=== PATIENT | male | born 1935 | race Caucasian/White ===

== ENCOUNTER 2019-05-25 11:37 | Outpatient (CLI) | payer OTHER, SELFPAY ==
[2019-05-25 11:54] LABS: Hematocrit 36.1 % (42.0-52.0); Hemoglobin 12.3 g/dL (14.0-18.0); Mean Corpuscular HGB Conc 34.1 g/dl (32-36); Mean Corpuscular Hemoglobin 31.5 pg (26-34); Mean Corpuscular Volume 92.6 fl (80-100); Mean Platelet Volume 10.2 fl (7.4-10.4); Platelet Count Result 109 k/mm3 (150-375); Red Cell Distribution Width 13.2 % (11.5-14.5); White Blood Count 6.7 K/mm3 (4.5-10.0)
[2019-05-25 11:58] LABS: Hemoglobin A1C 6.5 % (<5.7)
[2019-05-25 12:02] LABS: Alanine Aminotransferase 35 U/L (4-50); Albumin Level 3.7 g/dL (3.5-5.1); Alkaline Phosphatase 70 U/L (38-126); Aspartate Amino Transferase 34 U/L (17-59); Bilirubin,Total 0.4 mg/dL (0.2-1.3); Blood Urea Nitrogen 18 mg/dL (9-20); Calcium 8.5 mg/dL (8.4-10.2); Carbon Dioxide 27 mmol/L (22-30); Chloride 105 mmol/L (98-107); Estimated Glomerular Filt Rate > 60; Glucose 88 mg/dL (75-110); Potassium 4.2 mmol/L (3.4-5.0); Sodium 142 mmol/L (137-145)
== END 2019-05-25 11:38 | disposition home or self-care (01) ==
PROVIDERS: PCP Internal Medicine; Visit Provider Internal Medicine
DX: E11.8 Type 2 diabetes mellitus with unspecified complications (principal); I10 Essential (primary) hypertension; E78.2 Mixed hyperlipidemia
CPT/HCPCS: 36415; 80053; 83036; 85027; 85055

== ENCOUNTER 2019-06-28 09:58 | Outpatient (CLI) | payer OTHER, SELFPAY ==
--- NOTE | ~2019-06-28 | CT_ITS ---
EXAMINATION: CT abdomen pelvis wo con EXAM DATE: 06/28/2019 10:17 INDICATION: Inguinal hernia. TECHNIQUE: Spiral CT of the abdomen and pelvis was performed without contrast. Axial, coronal and s agittal images were reviewed. The dose-length product (DLP) for this examination was 1052.11 mGy-cm. The exposure was tailored according to patient size (auto mA exposure control), and iterative recon struction (ASIR) was used as additional dose reduction technique. There is no prior study for compar jacqueline. FINDINGS: The liver, spleen, adrenal glands and pancreas are unremarkable. Gallbladder is unremarkab le. No biliary obstruction. There is no nephrolithiasis or hydronephrosis. Bilateral renal lesions which are homogeneous of varying densities, most likely cysts and hemorrhagic cysts. Possible TURP d efect. The bladder is unremarkable. There is no retroperitoneal or pelvic lymphadenopathy. Small left inguinal fat-containing hernia. Mild scattered aortic arterial sclerosis. The appendix is normal. The stomach and small bowel are unremarkable. There is mild scattered coloni c diverticulosis. There is no adjacent inflammatory change to suggest diverticulitis. No free intra peritoneal gas. The heart is normal in size. There are no pericardial or pleural effusions. There is a 4 mm left lower lobe nodule unchanged compared to 2013, a granuloma. There are no osteoblastic or osteolytic lesions identified. IMPRESSION: 1. Small left inguinal fat-containing hernia. Reviewed, dictated and finalized at location B.
== END 2019-06-28 09:59 | disposition home or self-care (01) ==
LOC: ANHIMG 10:00
PROVIDERS: PCP Internal Medicine; Visit Provider Internal Medicine
DX: K40.90 Unilateral inguinal hernia, without obstruction or gangrene, not specified as recurrent (principal)
CPT/HCPCS: 74176

== ENCOUNTER 2019-07-13 15:45 | Outpatient (CLI) | payer OTHER, SELFPAY ==
[2019-07-13 16:00] LABS: Basophils Percent Auto 0.4 % (0.2-1.2); Eosinophils Absolute Auto 0.2 K/mm3 (0-0.3); Eosinophils Percent Auto 3.5 % (0-4.4); Hematocrit 40.2 % (42.0-52.0); Hemoglobin 13.5 g/dL (14.0-18.0); Immature Granulocyte Absolute 0.07 K/mm3 (0.00-0.031); Lymphocytes Absolute Auto 2.47 K/mm3 (0.9-3.2); Lymphocytes Percent Auto 35.6 % (18.3-44.2); Mean Corpuscular HGB Conc 33.6 g/dl (32-36); Mean Corpuscular Hemoglobin 32.5 pg (26-34); Mean Corpuscular Volume 96.9 fl (80-100); Mean Platelet Volume 9.6 fl (7.4-10.4); Monocytes Absolute Auto 0.5 K/mm3 (0.1-0.6); Monocytes Percent Auto 7.6 % (2.6-8.5); Neutrophils Absolute Auto 3.6 K/mm3 (1.3-6.7); Neutrophils Percent Auto 51.9 % (45.5-73.1); Platelet Count Result 141 k/mm3 (150-375); Red Blood Count 4.15 M/mm3 (4.6-6.20); White Blood Count 6.9 K/mm3 (4.5-10.0)
[2019-07-13 16:48] LABS: Iron 116 ug/dL (49-181)
[2019-07-13 16:56] LABS: Alanine Aminotransferase 33 U/L (4-50); Albumin Level 4.3 g/dL (3.5-5.1); Alkaline Phosphatase 64 U/L (38-126); Aspartate Amino Transferase 31 U/L (17-59); Bilirubin,Total 0.3 mg/dL (0.2-1.3); Blood Urea Nitrogen 25 mg/dL (9-20); Calcium 8.8 mg/dL (8.4-10.2); Carbon Dioxide 26 mmol/L (22-30); Chloride 104 mmol/L (98-107); Estimated Glomerular Filt Rate > 60; Glucose 117 mg/dL (75-110); Potassium 4.4 mmol/L (3.4-5.0); Sodium 138 mmol/L (137-145)
[2019-07-13 16:59] LABS: Percent Iron Saturation 31 % (20-50)
[2019-07-13 17:59] LABS: Folic Acid > 20.0 ng/mL (2.76->20)
[2019-07-16 22:32] LABS: Platelet Antibody, Direct IgG NEGATIVE (NEGATIVE)
== END 2019-07-13 15:46 | disposition home or self-care (01) ==
LOC: ANHLAB 15:47
PROVIDERS: PCP Internal Medicine; Referring Provider Internal Medicine; Visit Provider Internal Medicine Hematology & Oncology
DX: D69.59 Other secondary thrombocytopenia (principal)
CPT/HCPCS: 36415; 80053; 82607; 82728; 82746; 83540; 83550; 85025; 86023

== ENCOUNTER 2019-07-20 08:42 | Outpatient (CLI) | payer OTHER, SELFPAY ==
--- NOTE | ~2019-07-20 | US_ITS ---
EXAMINATION: US abdomen complete DATE: 07/20/2019 09:31 INDICATION: Other secondary thrombocytopenia. TECHNIQUE: Multiple grayscale and Doppler ultrasound images of the abdomen were obtained. COMPARISON: CT abdomen and pelvis 06/28/2019 FINDINGS: The abdominal aorta is normal in caliber. The visualized portions of the head, body, and ta il of the pancreas are normal. The liver is normal without focal lesion. There is normal flow in main portal vein. The gallbladder is normal in size. No gallstones or gallbladder wall thickening. There was no sonographic Ballesteros sign. The common duct is normal and measures 3 mm. The inferior vena cava i s normal. The kidneys are normal in size. There are cysts in the kidneys measuring up to 4.5 cm on th e left. The spleen is normal in size. IMPRESSION: 1. No etiology for thrombocytopenia. Reviewed, dictated and finalized at location A.
== END 2019-07-20 08:43 | disposition home or self-care (01) ==
PROVIDERS: PCP Internal Medicine; Visit Provider Internal Medicine Hematology & Oncology
DX: D69.6 Thrombocytopenia, unspecified (principal)
CPT/HCPCS: 76700

== ENCOUNTER 2019-08-25 10:24 | Outpatient (CLI) | payer OTHER, SELFPAY ==
--- NOTE | ~2019-08-25 | XR_ITS ---
EXAMINATION: XR lumbar spine min 4V DATE: 08/25/2019 12:32 INDICATION: L4-L5 spondylolisthesis. TECHNIQUE: Anteroposterior and lateral in neutral, flexion and extension views of the lumbar spine, a nd cone-down lateral view of the lumbosacral junction were obtained. COMPARISON: Lumbar spine MR dated 04/18/2019 FINDINGS: 1-2 mm retrolisthesis L2 on L3 which is unchanged with flexion and increases to 3 mm with extension. 3 mm anterolisthesis L4 on L5 which is also unchanged with flexion and decreases to 2 mm with extensi on. Negligible vertebral body height loss at L3 result from superior endplate compression fracture be tter appreciated on prior MRI. Moderate disc height loss at L2-L3 and L3-L4 and mild disc height loss at L4-L5. Bilateral lower lumbar predominant severe facet osteoarthritis. Moderate bilateral sacroil iitis which could be either degenerative or inflammatory in etiology. IMPRESSION: 1. Severe lumbar spondylosis with negligible change with flexion and extension of grade 1 spondylolis thesis at L2-L3 and L4-L5. Reviewed, dictated and finalized at location A. IMPRESSION: 1. Severe lumbar spondylosis with negligible change with flexion and extension of grade 1 spondylolisthesis at L2-L3 and L4-L5.
[2019-08-25 11:24] LABS: Alanine Aminotransferase 34 U/L (4-50); Albumin Level 4.3 g/dL (3.5-5.1); Alkaline Phosphatase 72 U/L (38-126); Aspartate Amino Transferase 33 U/L (17-59); Bilirubin,Total 0.6 mg/dL (0.2-1.3); Blood Urea Nitrogen 24 mg/dL (9-20); Calcium 9.5 mg/dL (8.4-10.2); Carbon Dioxide 24 mmol/L (22-30); Chloride 107 mmol/L (98-107); Estimated Glomerular Filt Rate > 60; Glucose 151 mg/dL (75-110); Potassium 4.6 mmol/L (3.4-5.0); Sodium 139 mmol/L (137-145); Total Protein 7.2 g/dL (6.3-8.2)
[2019-08-25 13:18] LABS: Microalbumin Urine Random 9.8 mg/L (0-16.7)
[2019-08-25 13:20] LABS: Creatinine Urine 26.3 mg/dL; MALB Creatinine Ratio 37.3 mg/g (0-30)
[2019-08-25 13:27] LABS: Hemoglobin A1C 6.8 % (<5.7)
== END 2019-08-25 10:25 | disposition home or self-care (01) ==
PROVIDERS: PCP Internal Medicine; Referring Provider Neurological Surgery; Visit Provider Internal Medicine
DX: E11.8 Type 2 diabetes mellitus with unspecified complications (principal); M43.16 Spondylolisthesis, lumbar region; M48.062 Spinal stenosis, lumbar region with neurogenic claudication; M21.371 Foot drop, right foot; M47.816 Spondylosis without myelopathy or radiculopathy, lumbar region
CPT/HCPCS: 36415; 72110; 80053; 82043; 83036

== ENCOUNTER 2019-08-30 13:48 | Outpatient (CLI) | payer OTHER, SELFPAY ==
--- NOTE | ~2019-08-30 | XR_ITS ---
EXAMINATION: XR shoulder LT min 2V DATE: 08/30/2019 14:15 INDICATION: Left shoulder pain. Fall. TECHNIQUE: 4 views of left shoulder were obtained. COMPARISON: Left shoulder radiographs 04/04/2019 FINDINGS: Bone alignment is normal. No fracture. There is moderate osteoarthritis of glenohumeral eileen nt and acromioclavicular joint. IMPRESSION: 1. Moderate polyarticular osteoarthritis. Reviewed, dictated and finalized at location E.
== END 2019-08-30 13:49 | disposition home or self-care (01) ==
PROVIDERS: PCP Internal Medicine; Visit Provider Internal Medicine
DX: M19.012 Primary osteoarthritis, left shoulder (principal)
CPT/HCPCS: 73030

== ENCOUNTER 2019-09-05 13:38 | Outpatient (CLI) | payer OTHER, SELFPAY ==
[2019-09-05 14:02] LABS: Basophils Percent Auto 0.6 % (0.2-1.2); Eosinophils Absolute Auto 0.3 K/mm3 (0-0.3); Eosinophils Percent Auto 3.9 % (0-4.4); Hematocrit 41.8 % (42.0-52.0); Hemoglobin 14.1 g/dL (14.0-18.0); Immature Granulocyte Absolute 0.08 K/mm3 (0.00-0.031); Immature Granulocyte Percent A 1.2 % (0-0.5); Immature Platelet Fraction Pct 2.3 % (0.9-11.2); Lymphocytes Absolute Auto 2.12 K/mm3 (0.9-3.2); Lymphocytes Percent Auto 30.7 % (18.3-44.2); Mean Corpuscular HGB Conc 33.7 g/dl (32-36); Mean Corpuscular Hemoglobin 31.8 pg (26-34); Mean Corpuscular Volume 94.1 fl (80-100); Mean Platelet Volume 9.7 fl (7.4-10.4); Monocytes Absolute Auto 0.6 K/mm3 (0.1-0.6); Monocytes Percent Auto 8.1 % (2.6-8.5); Neutrophils Absolute Auto 3.8 K/mm3 (1.3-6.7); Neutrophils Percent Auto 55.5 % (45.5-73.1); Platelet Count Result 139 k/mm3 (150-375); Red Blood Count 4.44 M/mm3 (4.6-6.20); Red Cell Distribution Width 13.3 % (11.5-14.5); White Blood Count 6.9 K/mm3 (4.5-10.0)
[2019-09-05 17:43] LABS: Folic Acid > 20.0 ng/mL (2.76->20)
== END 2019-09-05 13:39 | disposition home or self-care (01) ==
PROVIDERS: PCP Internal Medicine; Visit Provider Internal Medicine Hematology & Oncology
DX: D69.59 Other secondary thrombocytopenia (principal)
CPT/HCPCS: 36415; 82607; 82746; 85025; 85055